=== PATIENT | male | born 1995 | race Caucasian/White ===

== ENCOUNTER 2017-10-07 14:47 | Emergency (ER) | payer BC, SELFPAY ==
[2017-10-07 14:48] VITALS: BP 138/86; PULSE 104; RESP 16; TEMP 37.1; O2SAT 98; BMI 33.3
--- NOTE | 2017-10-07 15:02 | RAD_ITS ---
STUDY: X-RAY CHEST REASON FOR EXAM: Male, 22 years old. UPPER BACK INTO LEFT SHOULDER PAIN, NKI, HX ASTHMA A CHILD TECHNIQUE: Single PA view of the chest. COMPARISON: None. FINDINGS: The lungs are clear and expanded. There is no demonstrated pleural abnormality. Normal size heart. Normal mediastinum and giselle. Normal visualized pulmonary arteries. Normal visualized aortic arch and descending thoracic aorta. Normal visualized thoracic spine. Normal visualized ribs, clavicles, and shoulders. There is no demonstrated abnormality of the visualized soft tissue structures of the upper abdomen. RAD/Chest 1 View (Portable) IMPRESSION: Normal x-ray examination of the chest. Electronically Signed: Idania Tucker MD at 16:07 EDT , Service support ,
--- NOTE | 2017-10-07 15:02 | EKG12_ITS ---
Test Reason : BACK PAIN Blood Pressure : / mmHG Vent. Rate : 090 BPM Atrial Rate : 090 BPM P-R Int : 156 ms QRS Dur : 102 ms QT Int : 348 ms P-R-T Axes : 038 068 032 degrees QTc Int : 425 ms Normal sinus rhythm Normal ECG Confirmed by JLUIS RUIZ, BRITTANY ([id number]), book or script editor MENDEL CAPPS ([id number]) on 10/10/2017 1:31:52 PM Referred By: NICCI Confirmed By:BRITTANY BAZZI MD
--- NOTE | 2017-10-07 15:03 | RAD_ITS ---
STUDY: X-RAY - THORACIC SPINE REASON FOR EXAM: Male, 22 years old. UPPER BACK INTO LEFT SHOULDER PAIN, NKI, TECHNIQUE: 3 view(s) of the thoracic spine were obtained. COMPARISON: None. FINDINGS: Normal kyphosis of the thoracic spine. There is no substantial scoliosis. Normal thoracic vertebrae and endplates. Normal disc space heights. The soft tissue structures are unremarkable. RAD/Thoracic Spine 3 Views IMPRESSION: Normal x-ray examination of the thoracic spine. Electronically Signed: Idania Tucker MD at 16:07 EDT , Service support ,
--- NOTE | 2017-10-07 15:03 | RAD_ITS ---
STUDY: X-RAY - LEFT SHOULDER REASON FOR EXAM: Male, 22 years old. UPPER BACK INTO LEFT SHOULDER PAIN, NKI, TECHNIQUE: 4 view(s) of the shoulder. COMPARISON: None. FINDINGS: Normal glenohumeral articulation. Normal acromioclavicular joint. Normal acromion. Normal humeral head and visualized proximal humerus. The soft tissue structures are unremarkable. Normal visualized pulmonary apex. RAD/Shoulder min 2 Views IMPRESSION: Normal x-ray examination of the shoulder. Electronically Signed: Idania Tucker MD at 16:05 EDT , Service support ,
--- NOTE | 2017-10-07 15:03 | ED.VISSUMM ---
- ER Visit Summary Date of Service: 10/07/17 Chief Complaint: Back pain History of Present Illness: The patient is a 22 M presenting with back pain. He states he noticed it this morning. He does not recall a specific injury. He has pain in his left upper back. Pain is increased with sitting forward and moving his left arm. He states the pain sometimes goes into his chest. He denies shortness of breath. Denies fever or cough. Denies PE/DVT risk factors. He is a smoker. He did not try any medication prior to arrival. Physical Examination: Vitals are stable. Patient is afebrile. Alert no acute distress. HEENT exam is unremarkable. Neck is supple. Lungs are clear and equal bilaterally. Heart is regular rate and rhythm. Back: left paraspinal thoracic muscle tenderness Extremities left posterior shoulder tenderness, AFROM. Normal distal pulse Skin is warm and dry. No focal neurologic deficit. Remainder of exam is unremarkable. Emergency Department Course and Treatment: Patient is given Toradol IV. CBC, chemistries unremarkable. Troponin and d-dimer are negative. X-ray of the chest, left shoulder, thoracic spine are unremarkable. On reevaluation, patient is resting comfortably. He is given Dr. Bagley geospatial applications developer for no doc for follow-up. He is given a prescription for Naprosyn and Flexeril. Advised return to ED if worsening complaints. Disposition: Discharge home Impression: Thoracic back strain This note was generated with [employer] dictation software. It may contain incorrect words, spelling, and punctuation that were not noted in review of the chart prior to signing ED Disposition - Plan for ED Patient: Chief Complaint: Back Instructions: ED Neck Back Pain General Prescriptions: Naproxen [Naprosyn] 500 mg PO BID PRN #20 tablet Cyclobenzaprine [Flexeril] 10 mg PO TID PRN #20 tablet PRN Reason: Muscle Spasm Referrals: Roman Bagley DO [STAFF PHYSICIAN] - Care Physician,No Primary [Primary Care Provider] -
--- NOTE | 2017-10-07 15:06 | ED.DCSUM_ITS ---
- ER Visit Summary Date of Service: 10/07/17 Chief Complaint: Back pain History of Present Illness: The patient is a 22 M presenting with back pain. He states he noticed it this morning. He does not recall a specific injury. He has pain in his left upper back. Pain is increased with sitting forward and moving his left arm. He states the pain sometimes goes into his chest. He denies shortness of breath. Denies fever or cough. Denies PE/DVT risk factors. He is a smoker. He did not try any medication prior to arrival. Physical Examination: Vitals are stable. Patient is afebrile. Alert no acute distress. HEENT exam is unremarkable. Neck is supple. Lungs are clear and equal bilaterally. Heart is regular rate and rhythm. Back: left paraspinal thoracic muscle tenderness Extremities left posterior shoulder tenderness, AFROM. Normal distal pulse Skin is warm and dry. No focal neurologic deficit. Remainder of exam is unremarkable. Emergency Department Course and Treatment: Patient is given Toradol IV. CBC, chemistries unremarkable. Troponin and d-dimer are negative. X-ray of the chest, left shoulder, thoracic spine are unremarkable. On reevaluation, patient is resting comfortably. He is given Dr. Bagley linux consultant for no doc for follow-up. He is given a prescription for Naprosyn and Flexeril. Advised return to ED if worsening complaints. Disposition: Discharge home Impression: Thoracic back strain This note was generated with [employer] dictation software. It may contain incorrect words, spelling, and punctuation that were not noted in review of the chart prior to signing ED Disposition - Plan for ED Patient: Chief Complaint: Back Instructions: ED Neck Back Pain General Prescriptions: Naproxen [Naprosyn] 500 mg PO BID PRN #20 tablet Cyclobenzaprine [Flexeril] 10 mg PO TID PRN #20 tablet PRN Reason: Muscle Spasm Referrals: Roman Bagley DO [STAFF PHYSICIAN] - Care Physician,No Primary [Primary Care Provider] -
[2017-10-07] MEDS: Ketorolac 30 MG/ML Syringe IV (15:16)
--- NOTE | 2017-10-07 15:24 | ED.RN ---
no old ekg
[2017-10-07 15:37] LABS: Absolute Neutrophil Count 4.4 X10^3/uL (2.0-7.7); Basophil# 0.02 X10^3/uL; Basophil% 0.3 % (0-1); Eosinophil# 0.04 X10^3/uL; Eosinophils% 0.6 % (0-5); Hematocrit 42.9 % (40-54); Hemoglobin 14.6 g/dl (13.0-16.5); Lymphocyte % 29.3 % (19-41); Mean Corpuscular Hgb 29.9 pg (27.0-32.0); Mean Corpuscular Volume 87.7 fL (80-94); Mean Platelet Vol. 9.8 fl (6.2-12.0); Monocyte# 0.37 X10^3/uL; Monocyte% 5.4 % (0-10); Neutrophil # 4.37 X10^3/uL (2.7-7.7); Neutrophil % 64.1 % (47-70); Platelet Count 266 K/mm3 (150-450); RBC Distribution Width CV 13.3 % (11.6-14.6); RBC Distribution Width SD 42.4 fl (35.1-43.9); Red Blood Count 4.89 M/mm3 (4.6-6.2); White Blood Count 6.8 K/mm3 (4.4-11.0)
[2017-10-07 15:42] LABS: D-Dimer Quantitative (DVT/PE) < 0.27 FEU/ug/m (0.27-0.49); POSITIVE COUNT NO; POSITIVE DIFFERENTIAL NO; POSITIVE MORPHOLOGY NO
[2017-10-07 15:51] LABS: Anion Gap 7 (5-15); BUN 14 mg/dL (7-18); BUN/Creat Ratio 13.6 RATIO (10-20); Chloride 107 mmol/L (98-107); Creatinine, Serum 1.03 mg/dL (0.70-1.30); EST Glomerular Filtration Rate 96 mL/min (>60); Est Glom Filt Rate - Afr Amer 116 mL/min (>60); Estimated Creatinine Clearance 108.83 ml/min; Glucose 107 mg/dL (74-106); Potassium 3.9 mmol/L (3.5-5.1); Sodium Level 139 mmol/L (136-145)
--- NOTE | 2017-10-07 16:09 | ED.DEP ---
ED Disposition - Plan for ED Patient: Chief Complaint: Back Instructions: ED Neck Back Pain General Prescriptions: Naproxen [Naprosyn] 500 mg PO BID PRN #20 tablet Cyclobenzaprine [Flexeril] 10 mg PO TID PRN #20 tablet PRN Reason: Muscle Spasm Referrals: Care Physician,No Primary [Primary Care Provider] - Roman Bagley DO [STAFF PHYSICIAN] -
[2017-10-07 16:16] VITALS: BP 131/79; PULSE 87; RESP 18; O2SAT 97
== END 2017-10-07 16:27 | disposition home or self-care (01) ==
PROVIDERS: Emergency Provider Emergency Medicine
DX: S29.012A Strain of muscle and tendon of back wall of thorax, initial encounter (principal); X58.XXXA Exposure to other specified factors, initial encounter; Y93.9 Activity, unspecified; Y92.9 Unspecified place or not applicable; F17.200 Nicotine dependence, unspecified, uncomplicated
CPT/HCPCS: 71045; 72072; 73030; 80048; 84484; 85025; 85379; 93005; 96374; 99284; A4216

== ENCOUNTER 2018-03-15 13:22 | Emergency (ER) | payer BC, SELFPAY ==
[2018-03-15 13:23] VITALS: BP 161/89; PULSE 96; RESP 18; TEMP 36.6; O2SAT 98; BMI 33.0
[2018-03-15] MEDS: 0.9% Normal Saline 1,000 ML 150 ML IV (15:59)
[2018-03-15] MEDS: Ondansetron 4 MG/2 ML Vial IV (15:59)
[2018-03-15 16:07] VITALS: BP 155/86; PULSE 86; RESP 15; O2SAT 98
[2018-03-15 16:30] LABS: Absolute Lymphocyte Count 2.34 X10^3/ul (0.83-4.51); Absolute Neutrophil Count 5.5 X10^3/uL (2.0-7.7); Basophil# 0.02 X10^3/uL; Basophil% 0.2 % (0-1); Eosinophil# 0.05 X10^3/uL; Eosinophils% 0.6 % (0-5); Hematocrit 42.4 % (40-54); Hemoglobin 14.6 g/dl (13.0-16.5); Lymphocyte # 2.34 X10^3/ul (4.0); Lymphocyte % 27.9 % (19-41); Mean Corp Hgb Conc 34.4 g/gl (32-36); Mean Corpuscular Hgb 30.4 pg (27.0-32.0); Mean Corpuscular Volume 88.3 fL (80-94); Mean Platelet Vol. 9.7 fl (6.2-12.0); Monocyte# 0.48 X10^3/uL; Monocyte% 5.7 % (0-10); Neutrophil % 65.5 % (47-70); Platelet Count 260 K/mm3 (150-450); RBC Distribution Width SD 41.7 fl (35.1-43.9); White Blood Count 8.4 K/mm3 (4.4-11.0)
[2018-03-15 16:31] LABS: POSITIVE COUNT NO; POSITIVE DIFFERENTIAL NO; POSITIVE MORPHOLOGY NO
[2018-03-15 16:37] LABS: Prothrombin Time (Protime)PT. 13.2 SECONDS (11.7-14.9)
[2018-03-15 16:38] LABS: Partial Thromboplast Time 27.5 Seconds (24.1-36.2)
[2018-03-15 16:40] LABS: AST(SGOT) 16 U/L (15-37); Alanine Aminotransfer ALT/SGPT 47 U/L (16-61); Alkaline Phosphatase 73 U/L (45-117); Anion Gap 7 (5-15); BUN 15 mg/dL (7-18); BUN/Creat Ratio 16.2 RATIO (10-20); Bilirubin, Direct 0.12 mg/dL (0.00-0.30); Chloride 104 mmol/L (98-107); Creatinine, Serum 0.93 mg/dL (0.70-1.30); EST Glomerular Filtration Rate 107 mL/min (>60); Est Glom Filt Rate - Afr Amer 130 mL/min (>60); Estimated Creatinine Clearance 128.64 ml/min; Globulin 3.3 g/dL (2.2-4.2); Glucose 94 mg/dL (74-106); Lipase 67 U/L (73-393); Potassium 3.6 mmol/L (3.5-5.1); Protein, Total 7.3 g/dL (6.4-8.2); Sodium Level 138 mmol/L (136-145)
--- NOTE | 2018-03-15 17:17 | ED.VISSUMM ---
- ER Visit Summary Date of Service: 03/15/18 Chief Complaint: GI bleed History of Present Illness: The patient is a 22 M who states he vomited some red material 3 weeks ago and was unsure if that was blood or Gatorade. He vomited last evening and states at the end of his vomitus was bright red blood. He does admit to mild bright red blood in his stool recently and some dark sticky stool as well. He does admit to drinking fairly heavily. He has had history of reflux and has been using Tums. Physical Examination: Vital signs remarkable for blood pressure 161/89, otherwise normal. Patient sitting upright in bed no acute distress. Head neck examination is unremarkable. He does not have pale conjunctiva. Heart is regular rate and rhythm. Lung sounds clear. Abdomen is soft and nontender. Test Results: CBC and chemistry studies are normal. Liver and lipase normal. Coags normal. Emergency Department Course and Treatment: Patient is given IV fluids along with a dose of Protonix. On repeat evaluation he is resting comfortably. We discussed possibility of NG tube or rectal exam, however I do not feel this will change our management. He will be started on Prilosec and referred to GI and/or surgery for follow-up. Treatment Plan: [] Disposition: Discharge Impression: Gastritis This note was generated with [employer] dictation software. It may contain incorrect words, spelling, and punctuation that were not noted in review of the chart prior to signing ED Disposition - Plan for ED Patient: Chief Complaint: GI Bleed Referrals: Care Physician,No Primary [Primary Care Provider] -
--- NOTE | 2018-03-15 17:20 | ED.DEP ---
ED Disposition - Plan for ED Patient: Disposition: Home or Assisted Living Chief Complaint: GI Bleed Instructions: ED PUD Vs Gastritis Prescriptions: Omeprazole [Prilosec] 40 mg PO DAILY #60 capsule Referrals: Sayra Jimenes MD [STAFF PHYSICIAN] - Dennys Shen MD [NON-STAFF] -
== END 2018-03-15 17:32 | disposition home or self-care (01) ==
PROVIDERS: Emergency Provider Emergency Medicine
DX: K29.70 Gastritis, unspecified, without bleeding (principal); K21.9 Gastro-esophageal reflux disease without esophagitis; Z86.19 Personal history of other infectious and parasitic diseases; Z72.0 Tobacco use
CPT/HCPCS: 80048; 80076; 83690; 85025; 85610; 85730; 96361; 96365; 96375; 99284; J7030; J2405

== ENCOUNTER 2018-05-06 07:36 | Day surgery (SDC) | payer BC, SELFPAY ==
[2018-04-17 13:09] VITALS: BMI 34.9
--- NOTE | 2018-05-06 | GASB_PTH ---
PATIENT: JASON PARSON LOC: EN U#:[id number] AGE/SX: 23/M ROOM: RE05/06/[address]: [address]. Sayra Jimenes MD : 1995 BED: DIS: 05/06/2018 SPEC #: [id number] RECD: 05/06/18 13:29 STATUS: JAYCOB SHER #: [id number] LEO: 05/06/18 00:[address]: Sayra Jimenes DEPT: SURGICAL PATHOLOGY RECD BY: Jesus Espinoza ENTERED: 05/06/18 13:30 SP TYPE: Gastric Bx OTHR DR: No Primary Care Phys Tissues: A - Gastric mucous membrane B - Stomach, NOS C - Gastric mucous membrane Procedures: Surgery Specimen Level IV HEADER OPERATION: Colonoscopy, EGD ([facility] [place]) PRE-OP DIAGNOSIS: Reflux, rectal bleeding TISSUE SUBMITTED: A - Antral biopsy for H. pylori and pathology, B - Body of stomach biopsy, C - GE junction biopsy MICROSCOPIC DIAGNOSIS A. Gastric antrum, biopsy: Mild chronic gastritis. B. Gastric body, biopsy: Mild chronic inflammation. C. Gastroesophageal junction, biopsy: Focal changes of reflux. Junctional mucosa with mild chronic inflammation. AM:roger 05/07/18 COMMENT A. The results of immunohistochemistry for Helicobacter pylori will be reported separately ([id number]). MICROSCOPIC DESCRIPTION Slides are reviewed. GROSS DESCRIPTION A - Received in fixative is one container labeled with the patient's name and designated antral biopsy. The specimen consists of one irregular fragment of light cook soft tissue that measures 0.6 x 0.2 x 0.1 cm. The specimen is totally submitted in one cassette. B - Received in fixative is one container labeled with the patient's name and designated stomach body, biopsy. The specimen consists of one irregular fragment of light cook soft tissue that measures 0.5 x 0.2 x 0.1 cm. The specimen is totally submitted in one cassette. C - Received in fixative is one container labeled with the patient's name and designated GE junction biopsy. The specimen consists of multiple irregular fragments of light cook soft tissue that in aggregate measure 0.5 x 0.5 x 0.1 cm. The specimen is totally submitted in one cassette. / AM:roger 05/06/18 TC:3 CPT: 73743 x3
[2018-05-06 08:07] VITALS: BP 131/78; PULSE 83; RESP 18; TEMP 36.8; O2SAT 99; BMI 34.6
--- NOTE | 2018-05-06 08:45 | IMM_PTH ---
PATIENT: JASON PARSON LOC: EN U#:[id number] AGE/SX: 23/M ROOM: RE05/06/[address]: [address]. Sayra Jimenes MD : 1995 BED: DIS: 05/06/2018 SPEC #: [id number] RECD: 05/06/18 13:26 STATUS: JAYCOB RECortney #: [id number] LEO: 05/06/18 08:[address]: Sayra Jimenes DEPT: IMMUNOHISTOCHEMISTRY RECD BY: Jordyn Ragland ENTERED: 05/06/18 13:26 SP TYPE: IMMUNO OTHR DR: No Primary Care Phys Tissues: A - Stomach, NOS Procedures: H Pylori (initial) PHYSICIAN & INSTITUTION [place] [id number] SPECIMEN INFORMATION: Tissue Source: A - Antral biopsy Clinical Info: Reflux, rectal bleeding Specimen Number: [id number] CPT code: 23588 METHODOLOGY: Deparaffinized sections of prefer/formalin-fixed tissue or PAP/DQ stained slides are incubated with monoclonal/polyclonal antibodies/oligonucleotide probes. Localization is made via biotin free immunoperoxidase method. Appropriate controls are performed and reacted as expected. Results on target cell population are indicated in the following table: RESULTS: ANTIBODY / CLONE RESULT Block A H Pylori (polyclonal) negative These tests were developed and their performance characteristics determined by [facility]. They may not have been cleared or approved by the U.S. Food and Drug Administration. The FDA has determined that such clearance or approval is not necessary. INTERPRETATION: A. Antral biopsy: Negative for Helicobacter pylori organisms. AM:roger 05/07/18
[2018-05-06 09:22] VITALS: BP 131/78; BP 135/81; PULSE 74; RESP 16; TEMP 36.1; O2SAT 97
[2018-05-06 09:25] VITALS: BP 131/78; BP 96/59; PULSE 79; RESP 16; O2SAT 98
--- NOTE | 2018-05-06 09:25 | OP.ENDO_ITS ---
Patient Name: Galo Maloney Procedure Date: 05/06/2018 8:28 AM Date of : 1995 Age: 23 Procedure: Upper GI endoscopy Indications: Epigastric abdominal pain, Heartburn Providers: Sayra Jimenes MD Medicines: Monitored Anesthesia Care Patient Profile: This is a 23 year old male. Patient has symptoms of chronic epigastric abdominal pain and chronic heartburn. Complications: No immediate complications. Procedure: Pre-Anesthesia Assessment: - Prior to the procedure, a History and Physical was performed, and patient medications and allergies were reviewed. The patient's tolerance of previous anesthesia was also reviewed. The risks and benefits of the procedure and the sedation options and risks were discussed with the patient. All questions were answered, and informed consent was obtained. Prior Anticoagulants: The patient has taken no previous anticoagulant or antiplatelet agents. ASA Grade Assessment: II - A patient with mild systemic disease. After reviewing the risks and benefits, the patient was deemed in satisfactory condition to undergo the procedure. After obtaining informed consent, the endoscope was passed under direct vision. Throughout the procedure, the patient's blood pressure, pulse, and oxygen saturations were monitored continuously. The gastroscope was introduced through the mouth, and advanced to the second part of duodenum. The upper GI endoscopy was accomplished without difficulty. The patient tolerated the procedure well. Scope In: 8:48:12 AM Scope Out: 8:55:50 AM Total Procedure Duration Time 0 hours 7 minutes 38 seconds Findings: Diffuse moderate inflammation characterized by erythema was found in the entire examined stomach. Biopsies were taken with a cold forceps for histology in gastric body. Biopsies were taken with a cold forceps for Helicobacter pylori testing in antrum. A small hiatal hernia was present. Mild mucosal changes and irregular Z line were found at the gastroesophageal junction. Biopsies were taken with a cold forceps for histology. The examined duodenum was normal. No gross lesions were noted in the entire esophagus. Impression: - Gastritis. Biopsied. - Small hiatal hernia. - Mucosal changes in the gastroesophageal junction. Biopsied. - Normal examined duodenum. - No gross lesions in esophagus. Recommendation: - Await pathology results. - Discharge patient to home. - Use Protonix (pantoprazole) 40 mg PO daily. - Use sucralfate tablets 1 gram PO BID for 1 month. - Await pathology results. - Continue present medications. Procedure Code(s): --- Professional --- 39924, Esophagogastroduodenoscopy, flexible, transoral; with biopsy, single or multiple Diagnosis Code(s): --- Professional --- K29.70, Gastritis, unspecified, without bleeding K44.9, Diaphragmatic hernia without obstruction or gangrene K31.89, Other diseases of stomach and duodenum R10.13, Epigastric pain R12, Heartburn CPT copyright 2017 [employer]. All rights reserved. The codes documented in this report are preliminary and upon flight operations engineer review may be revised to meet current compliance requirements. MD Sayra Holder MD 05/06/2018 9:25:21 AM This report has been signed electronically. Number of Addenda: 0 Note Initiated On: 05/06/2018 8:28 AM
[2018-05-06 09:30] VITALS: BP 131/78; BP 92/43; PULSE 72; RESP 16; O2SAT 97
--- NOTE | 2018-05-06 09:31 | OP.ENDO_ITS ---
Patient Name: Galo Maloney Procedure Date: 05/06/2018 8:58 AM Date of : 1995 Age: 23 Procedure: Colonoscopy Indications: Gastrointestinal bleeding Providers: Sayra Jimenes MD Medicines: Monitored Anesthesia Care Patient Profile: This is a 23 year old male. Patient has symptoms of chronic epigastric abdominal pain and chronic heartburn. This is a 23 year old male. Last Colonoscopy: none. The patient's first colonoscopy is today. Complications: No immediate complications. Procedure: Pre-Anesthesia Assessment: - Prior to the procedure, a History and Physical was performed, and patient medications and allergies were reviewed. The patient's tolerance of previous anesthesia was also reviewed. The risks and benefits of the procedure and the sedation options and risks were discussed with the patient. All questions were answered, and informed consent was obtained. Prior Anticoagulants: The patient has taken no previous anticoagulant or antiplatelet agents. ASA Grade Assessment: II - A patient with mild systemic disease. After reviewing the risks and benefits, the patient was deemed in satisfactory condition to undergo the procedure. After I obtained informed consent, the scope was passed under direct vision. Throughout the procedure, the patient's blood pressure, pulse, and oxygen saturations were monitored continuously. The Colonoscope was introduced through the anus and advanced to the cecum, identified by the appendiceal orifice, ileocecal valve and palpation. The colonoscopy was performed without difficulty. The patient tolerated the procedure well. The quality of the bowel preparation was good. Scope In: 9:00:02 AM Scope Withdrawal Time 0 hours 8 minutes 56 seconds Scope Out: 9:14:49 AM Total Procedure Duration Time 0 hours 14 minutes 47 seconds Findings: The perianal and digital rectal examinations were normal. Multiple small-mouthed diverticula were found in the ascending colon. The exam was otherwise without abnormality on direct and retroflexion views. Impression: - The entire examined colon is normal on direct and retroflexion views. - No specimens collected. Recommendation: - Discharge patient to home. - High fiber diet. - Continue present medications. - Discharge patient to home. - Repeat colonoscopy at age 50 or 45 if the screening age for colonoscopy is decreased in the future for screening purposes. Procedure Code(s): --- Professional --- 47759, Colonoscopy, flexible; diagnostic, including collection of specimen(s) by brushing or washing, when performed (separate procedure) Diagnosis Code(s): --- Professional --- K92.2, Gastrointestinal hemorrhage, unspecified CPT copyright 2017 [employer]. All rights reserved. The codes documented in this report are preliminary and upon professional fee coder review may be revised to meet current compliance requirements. MD Sayra Holder MD 05/06/2018 9:31:25 AM This report has been signed electronically. Number of Addenda: 0 Note Initiated On: 05/06/2018 8:58 AM
[2018-05-06 09:34] VITALS: BP 112/94; BP 131/78; PULSE 77; RESP 16; TEMP 36.3; O2SAT 98
[2018-05-06 10:02] VITALS: BP 131/78
--- OUTSIDE RECORDS SUMMARY | 2018-06-29 07:15 | XMS RPT_ITS ---
:1995 Author Organization OHIP Care Team Providers Name Role Phone Sayra Jimenes Attending Unavailable Geri Jones Attending Unavailable Primay Care Physicia, No Primary Care Unavailable Primay Care Physicia, No Primary Care Unavailable Mary Lowery Attending Unavailable RobotSayra saldivar Attending Unavailable Primay Care Physicia, No Referring Unavailable Robotham, Sayra Attending Unavailable Robotham, Sayra Referring Unavailable Primay Care Physicia, No Primary Care Unavailable PROBLEMS PROBLEMS DATE TYPE CONDITION / CODE ATTENDING STATUS SOURCE 05/20/2018 Unknown K92.2 - Robotham, Active [facility], [facility] unspecified / Repository K92.2(ICD-10) 05/20/2018 Unknown R10.13 - Epigastric Robotjanna, Active [place] pain / R10.13(ICD-10) [facility] Repository 05/20/2018 Unknown R12 - Heartburn / Robotham, Active John R12(ICD-10) [facility] Repository 05/20/2018 Unknown K29.70 - Gastritis, Robotham, Active [place] unspecified, without [facility] bleeding / Hospital K29.70(ICD-10) Repository 05/20/2018 Unknown K44.9 - Diaphragmatic Robotham, Active [place] hernia without [facility] obstruction or Hospital gangrene / Repository K44.9(ICD-10) PROCEDURES PROCEDURES No Procedure Records FoundRESULTS RESULTS OPERATIVE REPORT - Observed: 05/06/2018 Status: F Source: [facility] 9:31 AM [facility] [place] [facility] Medical Records Department [address] [place] [address] Operative Report - Endoscopy MR#: [id number] Acct: [id number] Name: JASON MALONEY Rep #: [id number] : 1995 23 From: Sayra Jimenes MD PCP: Care Physician, No Primary Status: [facility] Patient Name: Jason Maloney Procedure Date: 05/06/2018 8:58 AM Date of : 1995 Age: 23 Procedure: Colonoscopy Indications: Gastrointestinal bleeding Providers: Sayra Jimenes MD Medicines: Monitored Anesthesia Care Patient Profile: This is a 23 year old male. Patient has symptoms of chronic epigastric abdominal pain and chronic heartburn. This is a 23 year old male. Last Colonoscopy: none. The patient's first colonoscopy is today. Complications: No immediate complications. Procedure: Pre-Anesthesia Assessment: - Prior to the procedure, a History and Physical was performed, and patient medications and allergies were reviewed. The patient's tolerance of previous anesthesia was also reviewed. The risks and benefits of the procedure and the sedation options and risks were discussed with the patient. All questions were answered, and informed consent was obtained. Prior Anticoagulants: The patient has taken no previous anticoagulant or antiplatelet agents. ASA Grade Assessment: II - A patient with mild systemic disease. After reviewing the risks and benefits, the patient was deemed in satisfactory condition to undergo the procedure. After I obtained informed consent, the scope was passed under direct vision. Throughout the procedure, the patient's blood pressure, pulse, and oxygen saturations were monitored continuously. The Colonoscope was introduced through the anus and advanced to the cecum, identified by the appendiceal orifice, ileocecal valve and palpation. The colonoscopy was performed without difficulty. The patient tolerated the procedure well. The quality of the bowel preparation was good. Scope In: 9:00:02 AM Scope Withdrawal Time 0 hours 8 minutes 56 seconds Scope Out: 9:14:49 AM Total Procedure Duration Time 0 hours 14 minutes 47 seconds Findings: The perianal and digital rectal examinations were normal. Multiple small-mouthed diverticula were found in the ascending colon. The exam was otherwise without abnormality on direct and retroflexion views. Impression: - The entire examined colon is normal on direct and retroflexion views. - No specimens collected. Recommendation: - Discharge patient to home. - High fiber diet. - Continue present medications. - Discharge patient to home. - Repeat colonoscopy at age 50 or 45 if the screening age for colonoscopy is decreased in the future for screening purposes. Procedure Code(s): --- Professional --- 27672, Colonoscopy, flexible; diagnostic, including collection of specimen(s) by brushing or washing, when performed (separate procedure) Diagnosis Code(s): --- Professional --- K92.2, Gastrointestinal hemorrhage, unspecified CPT copyright 2017 [employer]. All rights reserved. The codes documented in this report are preliminary and upon medical records coder review may be revised to meet current compliance requirements. MD Sayra Holder MD 05/06/2018 9:31:25 AM This report has been signed electronically. Number of Addenda: 0 Note Initiated On: 05/06/2018 8:58 AM 05/06/18 0931 Date Sayra Lojaignclotilde Signature: Date (if indicated) CC: No Primary Care Physician; Sayra Jimenes MD Date Dictated: 05/06/18 0858 Date Transcribed: Pain Management Nurse: LORETTA Signed OPERATIVE REPORT - Observed: 05/06/2018 Status: F Source: [facility] 9:25 [facility] Medical Records Department [address] [place] [address] Operative Report - Endoscopy MR#: [id number] Acct: [id number] Name: JASON MALONEY Rep #: [id number] : 1995 23 From: Sayra Jimenes MD PCP: Care Physician, No Primary Status: [facility] Patient Name: Jason Maloney Procedure Date: 05/06/2018 8:28 AM Date of : 1995 Age: 23 Procedure: Upper GI endoscopy Indications: Epigastric abdominal pain, Heartburn Providers: Sayra Jimenes MD Medicines: Monitored Anesthesia Care Patient Profile: This is a 23 year old male. Patient has symptoms of chronic epigastric abdominal pain and chronic heartburn. Complications: No immediate complications. Procedure: Pre-Anesthesia Assessment: - Prior to the procedure, a History and Physical was performed, and patient medications and allergies were reviewed. The patient's tolerance of previous anesthesia was also reviewed. The risks and benefits of the procedure and the sedation options and risks were discussed with the patient. All questions were answered, and informed consent was obtained. Prior Anticoagulants: The patient has taken no previous anticoagulant or antiplatelet agents. ASA Grade Assessment: II - A patient with mild systemic disease. After reviewing the risks and benefits, the patient was deemed in satisfactory condition to undergo the procedure. After obtaining informed consent, the endoscope was passed under direct vision. Throughout the procedure, the patient's blood pressure, pulse, and oxygen saturations were monitored continuously. The gastroscope was introduced through the mouth, and advanced to the second part of duodenum. The upper GI endoscopy was accomplished without difficulty. The patient tolerated the procedure well. Scope In: 8:48:12 AM Scope Out: 8:55:50 AM Total Procedure Duration Time 0 hours 7 minutes 38 seconds Findings: Diffuse moderate inflammation characterized by erythema was found in the entire examined stomach. Biopsies were taken with a cold forceps for histology in gastric body. Biopsies were taken with a cold forceps for Helicobacter pylori testing in antrum. A small hiatal hernia was present. Mild mucosal changes and irregular Z line were found at the gastroesophageal junction. Biopsies were taken with a cold forceps for histology. The examined duodenum was normal. No gross lesions were noted in the entire esophagus. Impression: - Gastritis. Biopsied. - Small hiatal hernia. - Mucosal changes in the gastroesophageal junction. Biopsied. - Normal examined duodenum. - No gross lesions in esophagus. Recommendation: - Await pathology results. - Discharge patient to home. - Use Protonix (pantoprazole) 40 mg PO daily. - Use sucralfate tablets 1 gram PO BID for 1 month. - Await pathology results. - Continue present medications. Procedure Code(s): --- Professional --- 52662, Esophagogastroduodenoscopy, flexible, transoral; with biopsy, single or multiple Diagnosis Code(s): --- Professional --- K29.70, Gastritis, unspecified, without bleeding K44.9, Diaphragmatic hernia without obstruction or gangrene K31.89, Other diseases of stomach and duodenum R10.13, Epigastric pain R12, Heartburn CPT copyright 2017 [employer]. All rights reserved. The codes documented in this report are preliminary and upon medical records coder review may be revised to meet current compliance requirements. MD Sayra Holder MD 05/06/2018 9:25:21 AM This report has been signed electronically. Number of Addenda: 0 Note Initiated On: 05/06/2018 8:28 AM 05/06/18 0925 Date Sayra Jimenes MD Cosigner Signature: Date (if indicated) CC: No Primary Care Physician; Sayra Jimenes MD Date Dictated: 05/06/1828 Date Transcribed: Pain Management Nurse: LORETTA Signed IMMUNOHISTOCHEMISTRY Observed: 05/06/2018 Status: F Source: [facility] 8:45 AM [facility] [place] Patient: JASON MALONEY : 1995 (23/M) Acct Num: [id number] Phys: Yudy RUIZ,Sayra Unit Num: [id number] Loc: EN Specimen: [id number] Received: 05/06/181325 Spec Type: IMMUNO TISSUES 1 TISSUES: A. Stomach, NOS SPECIMEN INFORMATION: Tissue Source: A - Antral biopsy Clinical Info: Reflux, rectal bleeding Specimen Number: [id number] CPT code: 77127 METHODOLOGY: Deparaffinized sections of prefer/formalin-fixed tissue or PAP/DQ stained slides are incubated with monoclonal/polyclonal antibodies/oligonucleotide probes. Localization is made via biotin free immunoperoxidase method. Appropriate controls are performed and reacted as expected. Results on target cell population are indicated in the following table: RESULTS: ANTIBODY / CLONE RESULT Block A H Pylori (polyclonal) negative These tests were developed and their performance characteristics determined by [facility]. They may not have been cleared or approved by the U.S. Food and Drug Administration. The FDA has determined that such clearance or approval is not necessary. INTERPRETATION: A. Antral biopsy: Negative for Helicobacter pylori organisms. AM:roger 05/07/18 PHYSICIAN AND INSTITUTION [address] [address] Signed [facility] 05/07/18 <signature on file> Performed By: #### PIMM #### [facility] [address] [place] [address]. [place], [place], [address] GASTRIC BIOPSY Observed: 05/06/2018 Status: F Source: [facility] 12:00 [facility] REPOSITORY Patient: JASON MALONEY : 1995 (23/M) Acct Num: [id number] Phys: Yudy RUIZSayra Unit Num: [id number] Loc: EN Specimen: [id number] Received: 05/06/18 - 1329 Spec Type: Gastric Bx TISSUES 1 TISSUES: A. Gastric mucous membrane B. Stomach, NOS C. Gastric mucous membrane COMMENT A. The results of immunohistochemistry for Helicobacter pylori will be reported separately ([id number]). GROSS DESCRIPTION A - Received in fixative is one container labeled with the patient's name and designated antral biopsy. The specimen consists of one irregular fragment of light cook soft tissue that measures 0.6 x 0.2 x 0.1 cm. The specimen is totally submitted in one cassette. B - Received in fixative is one container labeled with the patient's name and designated stomach body, biopsy. The specimen consists of one irregular fragment of light cook soft tissue that measures 0.5 x 0.2 x 0.1 cm. The specimen is totally submitted in one cassette. C - Received in fixative is one container labeled with the patient's name and designated GE junction biopsy. The specimen consists of multiple irregular fragments of light cook soft tissue that in aggregate measure 0.5 x 0.5 x 0.1 cm. The specimen is totally submitted in one cassette. / AM:roger 05/06/18 TC:3 CPT: 08513 x3 HEADER OPERATION: Colonoscopy, EGD ([facility]) PRE-OP DIAGNOSIS: Reflux, rectal bleeding TISSUE SUBMITTED: A - Antral biopsy for H. pylori and pathology, B - Body of stomach biopsy, C - GE junction biopsy MICROSCOPIC DESCRIPTION Slides are reviewed. MICROSCOPIC DIAGNOSIS A. Gastric antrum, biopsy: Mild chronic gastritis. B. Gastric body, biopsy: Mild chronic inflammation. C. Gastroesophageal junction, biopsy: Focal changes of reflux. Junctional mucosa with mild chronic inflammation. AM:roger 05/07/18 Signed [facility] 05/07/18 <signature on file> Performed By: #### PGASB #### [facility] [address] [place] [address]. [place], [address] SURGERY VISIT REPORT Observed: 04/17/2018 Status: F Source: [facility] 2:29 PM [facility] [place] [facility]. [address] [place] [address] OFFICE VISIT Date of Service: 04/17/18 MR#: [id number] Acct: [id number] Name: JASON MALONEY Rep #: [id number] : 1995 Provider: Sayra Jimenes MD Age/Sex: 23/M Location: [facility] Status: Signed Intake Vital Signs04/17/18 Height 5 ft 8 in 04/17/18 Weight: 230 lb 04/17/18 Body Mass Index (BMI) 34.9 Intake Visit Reasons: ER F/U 03/15 GI Bleed Ulcers Sap Mobility Architect Required: No Is patient in pain?: No Allergies No Known Allergies Allergy (Verified 04/17/18 13:09) Medications Omeprazole [Prilosec] 40 mg PO DAILY #60 cap 03/15/18 [Rx Confirmed 04/17/18] PFSH Surgical History H/O inguinal hernia repair (Acute) H/O umbilical hernia repair (Acute) Family History Mother Stomach ulcer Social History Smoking Status: Current every day smoker alcohol intake: current alcohol intake frequency: a few times a week HPI HPI HPI: JASON MALONEY, is a 23 M who presents to the office today for GERD, hematemesis, bright red blood per stool. Patient states that for about 2 years he has had issues with reflux and had some burning at his epigastric area and nausea. He contributed that to drinking too much red old but he did try to change his diet. However about a month ago he did not have hematemesis which he may have had one other time but was unsure if it was red Gatorade or not. He states there is quite a bit of possible blood with that emesis. But it did not occur after that. He also did have bright red blood per rectum about 2 days after the vomiting. He did go to the ER where they did give him omeprazole 20 mg p.o. twice daily which the patient states he has been taking as had not had any more symptoms and only occasional diarrhea. Did state that he ran out of the omeprazole and tried Prilosec [id number] that did not seem to work as well for him. He did get his refill filled and currently denies any abdominal pain nausea or vomiting. Patient states he has bowel months daily and he has had no other episodes of bright red blood since about a month ago. Also denies any family history of colon cancer. Patient denies any previous history of EGDs or colonoscopies. ROS General General: Yes fatigue; no weight change Gastro Gastrointestinal: Yes abdominal pain (Not currently), Yes nausea or vomiting (Not currently on meds), Yes diarrhea (Occasionally), No constipation, Yes blood in stool (Once a month ago none since), Yes acid reflux (Controlled medication), No hemorrhoids, No black,tarry stools Exam Const General: cooperative, comfortable, no acute distress Resp Effort AND Inspection: normal respiratory effort Cardio Rate: regular rate GI Inspection: non-distended, scar (Previous umbilical hernia incision) Palpation: soft, no hernias, no guarding, nontender Assessment AND Plan Problems 1. Gastroesophageal reflux disease K21.9 2. BRBPR (bright red blood per rectum) K62.5 3. Hematemesis K92.0 Plan I have discussed the above with the patient. I have offered the patient EGD and colonoscopy for evaluation. I have explained the risks/benefits of the procedure and described the procedure. I have discussed the risks with the patient, including but not limited to: infection, bleeding, perforation of the GI tract requiring emergency surgery, inability to complete the procedure, injury to any internal organs, complications of anesthesia, etc. - the patient understands and agrees to proceed. I have answered all the patient's questions to the patient's satisfaction and the patient has no further questions. The patient has been given instructions for the colon cleansing preparation. One day of clears with MiraLAX Dulcolax split prep. Sayra Jimenes M.D. Pager: [phone] [facility] [address] [place] [address], [address] [place] [address] Office: [phone] Orders Orders: Plan Detail Follow Up Will schedule EGD and colonoscopy Coding Level of Care Code Off vis,new,level 3 Diagnoses Gastroesophageal reflux disease K21.9 BRBPR (bright red blood per rectum) K62.5 Hematemesis K92.0 04/17/18 1429 <Electronically signed by Sayra Jimenes MD> Date Sayra Jimenes MD Cosigner Signature: Date (if applicable) CC: EMERGENCY DEPARTMENT Observed: 03/15/2018 Status: F Source: [facility] 9:48 PM [facility] [place] [facility] Medical Records Department [address] [place] [address] Emergency Department Summary 03/15/18 1717 MR#: [id number] Acct: [id number] Name: JASON MALONEY Rep #: [id number] : 1995 22 From: Mary Lowery MD PCP: Care Physician, No Primary Status: DEP ER - ER Visit Summary Date of Service: 03/15/18 Chief Complaint: GI bleed History of Present Illness: The patient is a 22 M who states he vomited some red material 3 weeks ago and was unsure if that was blood or Gatorade. He vomited last evening and states at the end of his vomitus was bright red blood. He does admit to mild bright red blood in his stool recently and some dark sticky stool as well. He does admit to drinking fairly heavily. He has had history of reflux and has been using Tums. Physical Examination: Vital signs remarkable for blood pressure 161/89, otherwise normal. Patient sitting upright in bed no acute distress. Head neck examination is unremarkable. He does not have pale conjunctiva. Heart is regular rate and rhythm. Lung sounds clear. Abdomen is soft and nontender. Test Results: CBC and chemistry studies are normal. Liver and lipase normal. Coags normal. Emergency Department Course and Treatment: Patient is given IV fluids along with a dose of Protonix. On repeat evaluation he is resting comfortably. We discussed possibility of NG tube or rectal exam, however I do not feel this will change our management. He will be started on Prilosec and referred to GI and/or surgery for follow-up. Treatment Plan: [] Disposition: Discharge Impression: Gastritis This note was generated with [employer] dictation software. It may contain incorrect words, spelling, and punctuation that were not noted in review of the chart prior to signing ED Disposition - Plan for ED Patient: Chief Complaint: GI Bleed Referrals: Care Physician,No Primary [Primary Care Provider] - What to do if you have Problems For any increased pain, shortness of breath, bleeding, nausea or vomiting, chest pain, or any unexpected problems, contact your Primary Care Provider. Call [facility] ([phone]) or report to the closest Emergency Room. Call 911 if necessary. 03/15/18 3246 <Electronically signed by Mary Lowery MD> Date Mary Lowery MD Cosigner Signature (If Indicated): Date CC: No Primary Care Physician DISCHARGE INSTRUCTION Observed: 03/15/2018 Status: F Source: [facility] 5:21 PM [facility] [place] [facility] Medical Records Department [address] [place] [address] Discharge Instruction 03/15/181719 MR#: [id number] Acct: [id number] Name: JASON MALONEY Rep #: [id number] : 1995 22 From: Mary Lowery MD PCP: Care Physician, No Primary Status: DEP ER ED Disposition - Plan for ED Patient: Disposition: Home or Assisted Living Chief Complaint: GI Bleed Instructions: ED PUD Vs Gastritis Prescriptions: Omeprazole [Prilosec] 40 mg PO DAILY #60 capsule Referrals: Sayra Jimenes MD [STAFF PHYSICIAN] - Dennys Shen MD [NON-STAFF] - What to do if you have Problems For any increased pain, shortness of breath, bleeding, nausea or vomiting, chest pain, or any unexpected problems, contact your Primary Care Provider. Call [facility] ([phone]) or report to the closest Emergency Room. Call 911 if necessary. 03/15/181720 <Electronically signed by Mary Lowery MD> Date Mary Lowery MD [place] Signature (If Indicated): Date ____ CC: No Primary Care Physician CBC W/DIFF, AUTOMATED Collected: 03/15/2018 Status: F Source: [facility] 4:10 PM [facility] [place] TYPE CODE TESTS RESULT OUT OF RANGE REFERENCE UNITS LAB L100.1000 4.4-11.0 K/mm3 Normal WBC 8.4 LAB L100.1200 4.6-6.2 M/mm3 Normal RBC 4.80 LAB L100.1300 13.0-16.5 g/dl Normal HGB 14.6 LAB L100.1400 40-54 % Normal HCT 42.4 LAB L100.1500 80-94 fL Normal MCV 88.3 LAB L100.1600 27.0-32.0 pg Normal MCH 30.4 LAB L100.1700 32-36 g/gl Normal MCHC 34.4 LAB L100.1810 11.6-14.6 % Normal RDW CV 13.0 LAB L100.1820 35.1-43.9 fl Normal RDW SD 41.7 LAB L100.1900 150-450 K/mm3 Normal PLT 260 LAB L100.2000 6.2-12.0 fl Normal MPV 9.7 LAB L100.2100 47-70 % Normal NEUT% 65.5 LAB L100.2200 19-41 % Normal LY% 27.9 LAB L100.2300 0-10 % Normal MONO% 5.7 LAB L100.2400 0-5 % Normal EO% 0.6 LAB L100.2500 0-1 % Normal BASO% 0.2 LAB L100.2550 0.0-0.9 % Normal IM GRAN % 0.100 Result Comment: IG% - Immature Granulocytes (promyelocytes, myelocytes and metamyelocytes) > 1% indicates that a LEFT SHIFT is Present. LAB L100.2620 2.0-7.7 X10 3/uL Normal Absolute Neut 5.5 LAB L100.2720 0.83-4.51 X10 3/ul Normal Absolute Lymph 2.34 Performed By: #### L100.0100 #### [facility] [address] [place], [address] BASIC METABOLIC Collected: 03/15/2018 Status: F Source: [facility] PROFILE (BMP) 4:10 PM [facility] [place] TYPE CODE TESTS RESULT OUT OF RANGE REFERENCE UNITS LAB L501.0100 74-106 mg/dL Normal GLU 94 Result Comment: Please note revised GLUCOSE reference range effective 2017. LAB L501.1000 7-18 mg/dL Normal BUN 15 LAB L501.1100 0.70-1.30 mg/dL Normal CREAT,SERUM 0.93 Result Comment: The validity of the calculated GFR AND GFRAA in patients over 70 years has not been determined. Clinical correlation is essential. LAB L501.1110 >60 mL/min Normal EST GFR 107 Result Comment: Non- GFR Calc LAB L501.1115 >60 mL/min Normal EST GFR - AA 130 Result Comment: GFR Calc LAB L501.1255 ml/min Normal Estimated CRCL 128.64 LAB L501.1300 10-20 RATIO BUN/CRE Normal 16.2 LAB L501.2200 8.5-10 mg/dL .1 CA Normal 9.0 LAB L501.5300 136-14 mmol/L 5 NA Normal 138 LAB L501.5600 3.5-5. mmol/L 1 K Normal 3.6 LAB L501.5900 98-107 mmol/L CL Normal 104 LAB L501.6100 21.0-3 mmol/L 2.0 CO2 Normal 27.0 LAB L501.6200 5-15 GAP Normal 7 Performed By: #### L500.2500, L500.3400, L501.2450 #### [facility] [address] [place], [address] LIVER PROFILE Collected: 03/15/2018 Status: F Source: [facility] 4:10 PM [facility] [place] TYPE CODE TESTS RESULT OUT OF RANGE REFERENCE UNITS LAB L501.1500 6.4-8.2 g/dL Normal T PROT 7.3 LAB L501.1800 3.2-5.0 g/dL Normal ALB 4.0 LAB L501.1950 2.2-4.2 g/dL Normal GLOB 3.3 LAB L501.4100 15-37 U/L Normal AST 16 LAB L501.4305 45-117 U/L Normal ALK P 73 LAB L501.4405 16-61 U/L Normal ALT 47 LAB L501.4600 0.20-1.00 mg/dL Normal T BILI 0.30 LAB L501.4700 0.00-0.30 mg/dL Normal D BILI 0.12 Performed By: #### L500.2500, L500.3400, L501.2450 #### [facility] [address] [facility] [place], [address] LIPASE Collected: 03/15/2018 Status: F Source: [facility] 4:10 PM [facility] [place] TYPE CODE TESTS RESULT OUT OF REFERENCE UNITS RANGE LAB L501.2450 73-393 U/L Low LIPASE 67 Performed By: #### L500.2500, L500.3400, L501.2450 #### [facility] [address] [place], [address] PROTHROMBIN TIME W/INR Collected: 03/15/2018 Status: F Source: [place] 4:10 PM [facility] [place] CODE TESTS RESULT OUT OF RANGE REFERENCE UNITS LAB L300.4150 11.7-14.9 SECONDS Normal PROTIME 13.2 LAB L300.4200 Normal INR 1.0 Performed By: #### L300.3900, L300.4310 #### [facility] [address] [place], [address] PARTIAL THROMBOPLAST Collected: 03/15/2018 Status: F Source: [place] TIME 4:10 PM [facility] [place] TYPE CODE TESTS RESULT OUT OF RANGE REFERENCE UNITS LAB L300.4310 24.1-36.2 Seconds Normal PTT 27.5 Performed By: #### L300.3900, L300.4310 #### [facility] [address] [place], [address] 12 LEAD ELECTROCARDIOGRAM Observed: 10/10/2017 Status: F Source: [place] 1:32 PM [facility] [place] [facility] Cardiovascular Services [address] [place] [address] 12 Lead EKG 10/07/17 1520 MR#: [id number] Acct: [id number] Name: JASON MALONEY Cecilia Rep #: [id number] : 1995 22 From: Pérez Bazzi MD Attending Dr: Status: DEP ER Ordering Dr: Geri Jones MD Date: 10/07/17 Location: ED Sex: M C Admitted: Test Reason : BACK PAIN Blood Pressure : / mmHG Vent. Rate : 090 BPM Atrial Rate : 090 BPM P-R Int : 156 ms QRS Dur : 102 ms QT Int : 348 ms P-R-T Axes : 038 068 032 degrees QTc Int : 425 ms Normal sinus rhythm Normal ECG Confirmed by JLUIS RUIZ, PÉREZ ([id number]), newspaper editor managing MENDEL CAPPS ([id number]) on 10/10/2017 1:31:52 PM Referred By: NICCI Confirmed By:PÉREZ BAZZI MD 10/10/17 1331 Date Pérez Bazzi MD CC: No Primary Care Physician; Geri Jones MD Signed EMERGENCY DEPARTMENT Observed: 10/07/2017 Status: F Source: [place] SUMMARY 4:20 PM [facility] [place] [facility] Medical Records Department [address] [place] [address] Emergency Department Summary 10/07/17 1503 MR#: [id number] Acct: [id number] Name: JASON MALONEY Rep #: [id number] : 1995 22 From: Geri Jones MD PCP: Care Physician, No Primary Status: REG ER - ER Visit Summary Date of Service: 10/07/17 Chief Complaint: Back pain History of Present Illness: The patient is a 22 M presenting with back pain. He states he noticed it this morning. He does not recall a specific injury. He has pain in his left upper back. Pain is increased with sitting forward and moving his left arm. He states the pain sometimes goes into his chest. He denies shortness of breath. Denies fever or cough. Denies PE/DVT risk factors. He is a smoker. He did not try any medication prior to arrival. Physical Examination: Vitals are stable. Patient is afebrile. Alert no acute distress. HEENT exam is unremarkable. Neck is supple. Lungs are clear and equal bilaterally. Heart is regular rate and rhythm. Back: left paraspinal thoracic muscle tenderness Extremities left posterior shoulder tenderness, AFROM. Normal distal pulse Skin is warm and dry. No focal neurologic deficit. Remainder of exam is unremarkable. Emergency Department Course and Treatment: Patient is given Toradol IV. CBC, chemistries unremarkable. Troponin and d-dimer are negative. X-ray of the chest, left shoulder, thoracic spine are unremarkable. On reevaluation, patient is resting comfortably. He is given Dr. Bagley second crusher for no doc for follow-up. He is given a prescription for Naprosyn and Flexeril. Advised return to ED if worsening complaints. Disposition: Discharge home Impression: Thoracic back strain This note was generated with [employer] dictation software. It may contain incorrect words, spelling, and punctuation that were not noted in review of the chart prior to signing ED Disposition - Plan for ED Patient: Chief Complaint: Back Instructions: ED Neck Back Pain General Prescriptions: Naproxen [Naprosyn] 500 mg PO BID PRN #20 tablet Cyclobenzaprine [Flexeril] 10 mg PO TID PRN #20 tablet PRN Reason: Muscle Spasm Referrals: Roman Bagley, [STAFF PHYSICIAN] - Care Physician,No Primary [Primary Care Provider] - What to do if you have Problems For any increased pain, shortness of breath, bleeding, nausea or vomiting, chest pain, or any unexpected problems, contact your Primary Care Provider. Call [facility] ([phone]) or report to the closest Emergency Room. Call 911 if necessary. 10/07/17 1620 <Electronically signed by Geri Jones MD> Date Geri Jones MD Cosigner Signature (If Indicated): Date CC: No Primary Care Physician DISCHARGE INSTRUCTION Observed: 10/07/2017 Status: F Source: [place] 4:11 PM [facility] [place] [facility] Medical Records Department [address] [place] [address] Discharge Instruction 10/07/17 1609 MR#: [id number] Acct: [id number] Name: JASON MALONEY Rep #: [id number] : 1995 22 From: Geri Jones MD PCP: Care Physician, No Primary Status: REG ER ED Disposition - Plan for ED Patient: Chief Complaint: Back Instructions: ED Neck Back Pain General Prescriptions: Naproxen [Naprosyn] 500 mg PO BID PRN #20 tablet Cyclobenzaprine [Flexeril] 10 mg PO TID PRN #20 tablet PRN Reason: Muscle Spasm Referrals: Care Physician,No Primary [Primary Care Provider] - Roman Bagley, [STAFF PHYSICIAN] - What to do if you have Problems For any increased pain, shortness of breath, bleeding, nausea or vomiting, chest pain, or any unexpected problems, contact your Primary Care Provider. Call [facility] ([phone]) or report to the closest Emergency Room. Call 911 if necessary. 10/07/17 1611 <Electronically signed by Geri Jones MD> Date Geri Jones MD Cosigner Signature (If Indicated): Date CC: No Primary Care Physician CBC W/DIFF, AUTOMATED Collected: 10/07/2017 Status: F Source: [place] 3:11 PM [facility] [place] TYPE CODE TESTS RESULT OUT OF RANGE REFERENCE UNITS LAB L100.1000 4.4-11.0 K/mm3 Normal WBC 6.8 LAB L100.1200 4.6-6.2 M/mm3 Normal RBC 4.89 LAB L100.1300 13.0-16.5 g/dl Normal HGB 14.6 LAB L100.1400 40-54 % Normal HCT 42.9 LAB L100.1500 80-94 fL Normal MCV 87.7 LAB L100.1600 27.0-32.0 pg Normal MCH 29.9 LAB L100.1700 32-36 g/gl Normal MCHC 34.0 LAB L100.1810 11.6-14.6 % Normal RDW CV 13.3 LAB L100.1820 35.1-43.9 fl Normal RDW SD 42.4 LAB L100.1900 150-450 K/mm3 Normal PLT 266 LAB L100.2000 6.2-12.0 fl Normal MPV 9.8 LAB L100.2100 47-70 % Normal NEUT% 64.1 LAB L100.2200 19-41 % Normal LY% 29.3 LAB L100.2300 0-10 % Normal MONO% 5.4 LAB L100.2400 0-5 % Normal EO% 0.6 LAB L100.2500 0-1 % Normal BASO% 0.3 LAB L100.2550 0.0-0.9 % Normal IM GRAN % 0.300 Result Comment: IG% - Immature Granulocytes (promyelocytes, myelocytes and metamyelocytes) > 1% indicates that a LEFT SHIFT is Present. LAB L100.2620 2.0-7.7 X10 3/uL Normal Absolute Neut 4.4 LAB L100.2720 0.83-4.51 X10 3/ul Normal Absolute Lymph 2.00 Performed By: #### L100.0100 #### [facility] [address] [place], [place], [address] D-DIMER QUANTITATIVE Collected: 10/07/2017 Status: F Source: [place] (DVT/PE) 3:11 PM [facility] [place] TYPE CODE TESTS RESULT OUT OF RANGE REFERENCE UNITS LAB L300.8000 0.27-0.49 FEU/ug/m Low D-DIMER < 0.27 QUANT Result Comment: NORMAL D-Dimer level (<0.50) indicates no DVT or PE. Performed By: #### L300.8000 #### [facility] [address] [place], [place], [address] BASIC METABOLIC Collected: 10/07/2017 Status: F Source: [place] PROFILE (BMP) 3:11 PM [facility] [place] Order Comment: 'TROP' Serial specimen #1, #2, #3, or #4: 1 TYPE CODE TESTS RESULT OUT OF RANGE REFERENCE UNITS LAB L501.0100 74-106 mg/dL High GLU 107 Result Comment: Fasting Glucose result from 100 to 125 mg/dL suggests IMPAIRED HOMEOSTASIS per A.D.A. criteria. Please note revised GLUCOSE reference range effective 2017. LAB L501.1000 7-18 mg/dL Normal BUN 14 LAB L501.1100 0.70-1.30 mg/dL Normal CREAT,SERUM 1.03 Result Comment: The validity of the calculated GFR AND GFRAA in patients over 70 years has not been determined. Clinical correlation is essential. LAB L501.1110 >60 mL/min Normal EST GFR 96 Result Comment: Non- GFR Calc LAB L501.1115 >60 mL/min Normal EST GFR - AA 116 Result Comment: GFR Calc LAB L501.1255 ml/min Normal Estimated CRCL 108.83 LAB L501.1300 10-20 RATIO BUN/CRE Normal 13.6 LAB L501.2200 8.5-10 mg/dL .1 CA Normal 9.0 LAB L501.5300 136-14 mmol/L 5 NA Normal 139 LAB L501.5600 3.5-5. mmol/L 1 K Normal 3.9 LAB L501.5900 98-107 mmol/L CL Normal 107 LAB L501.6100 21.0-3 mmol/L 2.0 CO2 Normal 25.0 LAB L501.6200 5-15 GAP Normal 7 Performed By: #### L500.2500, L501.4010 #### [facility] [address] [place], [address] TROPONIN-I Collected: 10/07/2017 Status: F Source: [place] 3:11 PM [facility] [place] Order Comment: 'TROP' Serial specimen #1, #2, #3, or #4: 1 TYPE CODE TESTS RESULT OUT OF RANGE REFERENCE UNITS LAB L501.4010 <0.06 ng/mL Normal < 0.02 TROPONIN-I Result Comment: TROPONIN-I EXPECTED VALUES <0.05 NEGATIVE 0.06 - 0.59 AT RISK OF [place] > OR = 0.60 SUGGEST [place] Performed By: #### L500.2500, L501.4010 #### [facility] [address] [place], [address] SHOULDER MIN 2 VIEWS Observed: 10/07/2017 Status: F Source: [place] 3:04 PM [facility] Imaging Services [address] [place] [address] Shoulder min 2 Views MR#: [id number] Acct: [id number] Name: JASON MALONEY Rep #: [id number] : 1995 M 22 From: Idania Tucker MD PCP: Care Physician, No Primary Status: REG ER Study: Shoulder min 2 Views Date of Exam: 10/07/17 Exam# [id number] Ordering Dr: Geri Jones MD STUDY: X-RAY - LEFT SHOULDER REASON FOR EXAM: Male, 22 years old. UPPER BACK INTO LEFT SHOULDER PAIN, NKI, TECHNIQUE: 4 view(s) of the shoulder. COMPARISON: None. FINDINGS: Normal glenohumeral articulation. Normal acromioclavicular joint. Normal acromion. Normal humeral head and visualized proximal humerus. The soft tissue structures are unremarkable. Normal visualized pulmonary apex. RAD/Shoulder min 2 Views IMPRESSION: Normal x-ray examination of the shoulder. Electronically Signed: Idania Tucker MD at 16:05 EDT , Service support , CC: No Primary Care Physician; Geri Jones MD Pain Management Nurse: Signed CHEST 1 VIEW Observed: 10/07/2017 Status: F Source: [place] (PORTABLE) 3:04 PM [facility] RE[facility] Imaging Services [address] [place] [address] Chest 1 View (Portable) MR#: [id number] Acct: [id number] Name: AJSON MALONEY Rep #: [id number] : 1995 M 22 From: Idania Tucker MD PCP: Care Physician, No Primary Status: REG ER Study: Chest 1 View (Portable) Date of Exam: 10/07/17 Exam# [id number] Ordering Dr: Geri Jones MD STUDY: X-RAY CHEST REASON FOR EXAM: Male, 22 years old. UPPER BACK INTO LEFT SHOULDER PAIN, NKI, HX ASTHMA A CHILD TECHNIQUE: Single PA view of the chest. COMPARISON: None. FINDINGS: The lungs are clear and expanded. There is no demonstrated pleural abnormality. Normal size heart. Normal mediastinum and giselle. Normal visualized pulmonary arteries. Normal visualized aortic arch and descending thoracic aorta. Normal visualized thoracic spine. Normal visualized ribs, clavicles, and shoulders. There is no demonstrated abnormality of the visualized soft tissue structures of the upper abdomen. RAD/Chest 1 View (Portable) IMPRESSION: Normal x-ray examination of the chest. Electronically Signed: Idania Tucker MD at 16:07 EDT , Service support , CC: No Primary Care Physician; Geri Jones MD Pain Management Nurse: Signed THORACIC SPINE 3 Observed: 10/07/2017 Status: F Source: [place] VIEWS 3:04 PM [facility] [place] [facility] Imaging Services [address] [place] [address] Thoracic Spine 3 Views MR#: [id number] Acct: [id number] Name: JASON MALONEY Rep #: [id number] : 1995 M 22 From: Idania Tucker MD PCP: Care Physician, No Primary Status: REG ER Study: Thoracic Spine 3 Views Date of Exam: 10/07/17 Exam# [id number] Ordering Dr: Geri Jones MD STUDY: X-RAY - THORACIC SPINE REASON FOR EXAM: Male, 22 years old. UPPER BACK INTO LEFT SHOULDER PAIN, NKI, TECHNIQUE: 3 view(s) of the thoracic spine were obtained. COMPARISON: None. FINDINGS: Normal kyphosis of the thoracic spine. There is no substantial scoliosis. Normal thoracic vertebrae and endplates. Normal disc space heights. The soft tissue structures are unremarkable. RAD/Thoracic Spine 3 Views IMPRESSION: Normal x-ray examination of the thoracic spine. Electronically Signed: Idania Tucker MD at 16:07 EDT , Service support , CC: No Primary Care Physician; Geri Jones MD Pain Management Nurse: Signed ALLERGIES ALLERGIES DATE TYPE / CODE NAME / CODE REACTION SEVERITY SOURCE 05/06/2018 Drug No Known Unknown [place] [facility] Allergy/4160 Allergies/F00 [facility] [address](SNOMED [id number](RXNOR Repository CT) M) ENCOUNTERS ENCOUNTERS ADMIT/DISCHARGE ACCOUNT ADMITTING ENCOUNTER LOCATION SOURCE NUMBER CLASS 05/06/2018/ [id number] Ambulatory BMSBuilding:B [place] 8 3 [place].CF.[facility] Repository 05/06/2018/ [id number] Ambulatory John [place] 8 2 [facility] ing:ENRoom: Repository 11 04/17/2018/ [id number] Ambulatory BMSBuilding:B [place] 8 7 [place].[facility] Repository 03/15/2018/ [id number] Emergency John [place] 8 6 [facility] ing:ED Repository 10/07/2017/ [id number] Emergency [place] [facility] ing:ED Repository PAYERS PAYERS ENCOUNTER GUARANTOR PAYER SUBSCRIBER SOURCE 05/06/2018 JASON Lopez [id number] SR Insurance:ANTHEMPolic ZENODOB: [facility] ANUM, y Number: [id number] [address]Ubk: [id number] Repository Date:3479-40-95[address] ) [address], [place] [address]ZN: 05/06/2018 Secondary NOT GIVENUNK [place] Insurance:SELF PAY [facility] Number: Effective Repository Date:2018-05-06 05/06/2018 JASON Brooks Primary JASON Brooks [place] [id number] SR Insurance:ANTHEMPolic ZENODOB: [place] [address], y Number: [id number] [facility] [address]Dec: [id number] Repository Date:1518-49-16UL [address] () [address], [place] [address]VP: 05/06/2018 Secondary NOT GIVENUNK [place] Insurance:SELF PAY [facility] Number: Effective Repository Date:2018-04-17 04/17/2018 JASON Cecilia Primary JASON Brooks [place] [id number] SR Insurance:ANTHEMPolic ZENODOB: [place] [address], y Number: [id number] [facility] [address]Vua: [id number] Repository Date:6808-45-23[address] () [address], [place] [address]ZP: 04/17/2018 Secondary NOT GIVENUNK [place] Insurance:SELF PAY [facility] Number: Effective Repository Date:2018-04-17 03/15/2018 JASON Brooks Primary JASON Brooks [place] [id number] SR Insurance:ANTHEMPolic ZENODOB: [place] [address], y Number: [id number] [facility] Medical Center [address]Ikn: [id number] Repository Date:8004-75-35KY [address] () [address], [place] [address]SY: 03/15/2018 Secondary NOT GIVENUNK [place] Insurance:SELF PAY [facility] Number: Effective Repository Date:2018-03-15 10/07/2017 JASON Brooks Primary JASON Brooks [place] [id number] SR Insurance:ANTHEMPolic ZENODOB: [place] [address], y Number: [id number] Indian Medical Center [address]Nul: [id number] Repository Date:6383-96-27HP [address] ([address]) [address], [place] [address]WD: 10/07/2017 Secondary NOT GIVENUNK [place] Insurance:SELF PAY [facility] Number: Effective Repository Date:2017-10-07
== END 2018-05-06 10:02 | disposition home or self-care (01) ==
LOC: EN 07:37 → AC 07:38
PROVIDERS: Referring Provider Surgery; Visit Provider Surgery
PROC: 0DJD8ZZ Inspection of Lower Intestinal Tract, Via Natural or Artificial Opening Endoscopic (ICD-10-PCS; CPT 45378; principal; 2018-05-06 08:40)
DX: K29.50 Unspecified chronic gastritis without bleeding (principal); K44.9 Diaphragmatic hernia without obstruction or gangrene; K31.89 Other diseases of stomach and duodenum; K21.9 Gastro-esophageal reflux disease without esophagitis; K57.30 Diverticulosis of large intestine without perforation or abscess without bleeding; K92.2 Gastrointestinal hemorrhage, unspecified; J45.909 Unspecified asthma, uncomplicated; Z87.19 Personal history of other diseases of the digestive system; F12.90 Cannabis use, unspecified, uncomplicated; F17.200 Nicotine dependence, unspecified, uncomplicated
CPT/HCPCS: 43239; 45378; 88305; 88342; J7120